=== PATIENT | female | born 1995 | race Asian ===

== ENCOUNTER 2022-07-29 06:45 | Emergency (ER) | payer MEDICAID, OTHER ==
[~2022-07-29] VITALS: Ht 160 cm; Wt 91.0 kg
[2022-07-29 06:55] VITALS: BP 156/112
[2022-07-29] MEDS ORDERED: ACETAMINOPHEN 325MG TABLET PO ONE (09:15)
[2022-07-29 09:46] LABS: CLARITY URINE CLEAR (CLEAR); COLOR URINE YELLOW (YELLOW); KETONES URINE TRACE (NEGATIVE); LEUKOCYTE ESTERASE URINE NEGATIVE (NEGATIVE); NITRITE URINE NEGATIVE (NEGATIVE); OCCULT BLOOD URINE NEGATIVE (NEGATIVE); PH URINE 6.5 (4.5-8.0); PROTEIN URINE 2+ (NEGATIVE); SPECIFIC GRAVITY URINE 1.044 (1.005-1.030)
[2022-07-29 09:55] LABS: BASOPHILS % 0.6 % (0.0-2.0); CHLORIDE 105 mEq/L (98-107); EOSINOPHILS % 1.1 % (0.0-5.0); HEMOGLOBIN. 13.4 g/dL (12.0-16.0); MEAN CORPUSCULAR HEMOGLOBIN 29.2 pg (28.0-32.0); MEAN CORPUSCULAR VOLUME 89.6 fL (81.0-99.0); MEAN PLATELET VOLUME 8.1 fl (7.4-10.4); MONOCYTES % 6.1 % (2.0-8.0); NEUTROPHILS % 79.2 % (40.0-76.0); PLATELET 315 x1000/uL (130-400); RED BLOOD CELL COUNT 4.57 mill/uL (4.2-5.4); RED CELL DISTRIBUTION WIDTH 13.1 % (11.6-14.6)
[2022-07-29 10:23] LABS: B-HCG QUANTITATIVE 71766 mIU/mL (<3)
[2022-07-29] MEDS ORDERED: CEPH250C2 MT (11:38)
== END 2022-07-29 12:00 | disposition home or self-care (01) ==
LOC: ER 06:45
DX: O26.891 Other specified pregnancy related conditions, first trimester (principal); R10.30 Lower abdominal pain, unspecified; Z3A.09 9 weeks gestation of pregnancy
CPT/HCPCS: 36415; 76801; 80048; 81003; 81025; 84702; 85025; 86850; 86900; 99284

== ENCOUNTER 2022-09-22 18:50 | Inpatient (IN) | payer OTHER ==
[~2022-09-22] VITALS: Ht 160 cm; Wt 98.9 kg
[~2022-09-22 18:50] MED LIST: CEPH250C2 MT
[2022-09-22] MEDS ORDERED: MORPHINE SULFATE 4 MG/ML CPJ (NOT FOR IM USE) IV ONE (19:45)
[2022-09-22] MEDS ORDERED: SODIUM CHLORIDE 0.9% 1,000 ML IV ONE (19:45)
[2022-09-22 20:01] LABS: BASOPHILS % 0.5 % (0.0-2.0); EOSINOPHILS % 2.4 % (0.0-5.0); HEMATOCRIT. 37.1 % (36.0-48.0); HEMOGLOBIN. 12.6 g/dL (12.0-16.0); LYMPHOCYTES % 10.1 % (20.0-50.0); MEAN CORPUSCULAR HEMOGLOBIN 29.9 pg (28.0-32.0); MEAN CORPUSCULAR VOLUME 88.1 fL (81.0-99.0); MEAN PLATELET VOLUME 8.2 fl (7.4-10.4); MONOCYTES % 5.6 % (2.0-8.0); NEUTROPHILS % 81.4 % (40.0-76.0); PLATELET 290 x1000/uL (130-400); RED BLOOD CELL COUNT 4.21 mill/uL (4.2-5.4)
[2022-09-22 20:09] LABS: CHLORIDE 106 mEq/L (98-107)
[2022-09-22] MEDS ORDERED: KETOROLAC 15MG/ML VIAL IV ONE (20:15)
[2022-09-22] MEDS ORDERED: CEFTRIAXONE 1GM PREMIX 50 ML IV ONE (23:30)
[2022-09-22] MEDS ORDERED: METRONIDAZOLE 500 MG PREMIX 100 ML IV ONE (23:30)
[2022-09-23] MEDS ORDERED: LACTATED RINGERS 1,000 ML IV ONE (01:00)
[2022-09-23 03:10] LABS: HEMATOCRIT. 30.1 % (36.0-48.0); HEMOGLOBIN. 10.4 g/dL (12.0-16.0); MEAN CORPUSCULAR HEMOGLOBIN 30.4 pg (28.0-32.0); MEAN CORPUSCULAR VOLUME 88.2 fL (81.0-99.0); MEAN PLATELET VOLUME 8.2 fl (7.4-10.4); PLATELET 242 x1000/uL (130-400); RED BLOOD CELL COUNT 3.41 mill/uL (4.2-5.4); RED CELL DISTRIBUTION WIDTH 13.4 % (11.6-14.6)
[2022-09-23] MEDS ORDERED: METHYLERGONOVINE MALEATE 0.2 MG/ML IM PRN (04:00)
[2022-09-23] MEDS ORDERED: OXYTOCIN 30 UNITS/500ML NS PMX 500 ML IV SCH (04:00)
[2022-09-23] MEDS ORDERED: NALOXONE HCL 0.4 MG/ML 1ML VIAL IM PRN (04:00)
[2022-09-23] MEDS ORDERED: LACTATED RINGERS 1,000 ML IV NR (04:15)
[2022-09-23] MEDS ORDERED: MORPHINE SULFATE 2 MG/ML CPJ (NOT FOR IM USE) IV NR (05:15)
[2022-09-23] MEDS: AMPICILLIN 1,000 MG in SODIUM CHLORIDE 0.9% 50 ML IV SCH ×4 (05:21→21:33)
[2022-09-23] MEDS: RHO(D) IMMUNE GLOBULIN 300 MCG/SYR IM NR (05:21)
[2022-09-23 08:30] LABS: BASOPHILS % 0.4 % (0.0-2.0); EOSINOPHILS % 2.5 % (0.0-5.0); HEMATOCRIT. 29.1 % (36.0-48.0); HEMOGLOBIN. 9.8 g/dL (12.0-16.0); LYMPHOCYTES % 15.4 % (20.0-50.0); MEAN CORPUSCULAR HEMOGLOBIN 30.2 pg (28.0-32.0); MEAN CORPUSCULAR VOLUME 89.6 fL (81.0-99.0); MEAN PLATELET VOLUME 8.1 fl (7.4-10.4); MONOCYTES % 7.7 % (2.0-8.0); PLATELET 230 x1000/uL (130-400); RED BLOOD CELL COUNT 3.25 mill/uL (4.2-5.4); RED CELL DISTRIBUTION WIDTH 12.8 % (11.6-14.6)
[2022-09-23 08:45] LABS: PARTIAL THROMBOPLASTIN TIME 25.1 sec (23.4-31.0); PROTHROMBIN TIME 10.4 sec (9.6-11.0)
[2022-09-23 10:27] VITALS: BP 129/69
[2022-09-23 10:59] LABS: PLATELET ESTIMATE NORMAL
[2022-09-23 12:00] VITALS: BP 123/75
[2022-09-23] MEDS: DEXT 5%/LACTATED RINGERS 1,000 ML IV SCH ×2 (12:36→21:33)
[2022-09-23 14:18] LABS: CLARITY URINE CLOUDY (CLEAR); COLOR URINE YELLOW (YELLOW); KETONES URINE 1+ (NEGATIVE); LEUKOCYTE ESTERASE URINE 1+ (NEGATIVE); NITRITE URINE NEGATIVE (NEGATIVE); OCCULT BLOOD URINE 3+ (NEGATIVE); PH URINE 5.5 (4.5-8.0); PROTEIN URINE 1+ (NEGATIVE); SPECIFIC GRAVITY URINE 1.018 (1.005-1.030)
[2022-09-23 14:41] LABS: *AMPHETAMINES SCREEN URINE NEGATIVE (NEGATIVE); *BARBITURATES SCREEN URINE NEGATIVE (NEGATIVE); *BENZODIAZEPINES SCREEN URINE NEGATIVE (NEGATIVE); *COCAINE SCREEN URINE NEGATIVE (NEGATIVE); CANNABINOID URINE SCREEN NEGATIVE (NEGATIVE); METHADONE URINE SCREEN NEGATIVE (NEGATIVE); PHENCYCLIDINE URINE SCREEN NEGATIVE (NEGATIVE)
[2022-09-23 14:52] LABS: OPIATES URINE SCREEN PRESUMTIVE POSITIVE (NEGATIVE)
[2022-09-23 16:00] VITALS: BP 113/61
[2022-09-23 18:16] VITALS: BP 123/75
[2022-09-23 20:00] VITALS: BP 121/66
[2022-09-24 04:00] VITALS: BP 126/56
[2022-09-24] MEDS ORDERED: MORPHINE SULFATE 2 MG/ML CPJ (NOT FOR IM USE) IV NR (04:00)
[2022-09-24] MEDS ORDERED: ACETAMINOPHEN WITH CODEINE 300/30MG TABLET PO PRN (04:00)
[2022-09-24] MEDS: AMPICILLIN 1,000 MG in SODIUM CHLORIDE 0.9% 50 ML IV SCH (04:09)
[2022-09-24] MEDS: RHO(D) IMMUNE GLOBULIN 300 MCG/SYR IM NR ×2 (04:46→21:23)
[2022-09-24 08:00] VITALS: BP 111/51
[2022-09-24 12:00] VITALS: BP_SYST 116; BP_SYST 128; BP_DIAS 66; BP_DIAS 86
[2022-09-24 16:00] VITALS: BP 116/66
[2022-09-24] MEDS ORDERED: NALOXONE HCL 0.4MG/ML VIAL IV PRN (17:00)
[2022-09-24] MEDS ORDERED: OXYTOCIN 30 UNITS/500ML NS PMX 500 ML IV SCH (18:00)
[2022-09-24 20:00] VITALS: BP 143/86
[2022-09-24 21:28] VITALS: BP 143/86
== END 2022-09-24 22:12 | disposition home or self-care (01) | DRG 564 ==
LOC: ER 18:50 → MICUSO 23:21 → EDBEDREQ 23:25 → EDBEDREQTM 23:25 → 6EST 09-23 09:10
PROVIDERS: ADMIT Obstetrics & Gynecology; ATTEND Obstetrics & Gynecology
PROC: 10D17Z9 Manual Extraction of Products of Conception, Retained, Via Natural or Artificial Opening (ICD-10-PCS; principal; 2022-09-22)
DX: O03.1 Delayed or excessive hemorrhage following incomplete spontaneous abortion (principal); N93.9 Abnormal uterine and vaginal bleeding, unspecified; Z3A.20 20 weeks gestation of pregnancy
CPT/HCPCS: 36415; 76801; 76830; 76856; 80053; 80305; 81003; 85025; 86592; 86703; 86850; 86900; 87340; 88305; 88309; 99291; J0290; J0696; J1885; J2270; J3490; J7030; J7121; J2590